=== PATIENT | female | born 1985 | race Two or more races ===

== ENCOUNTER 2017-09-21 10:45 | Emergency (ER) | payer BC ==
[2017-09-21 10:50] VITALS: BMI 23.9
[2017-09-21 11:05] VITALS: RESP 16
--- NOTE | 2017-09-21 11:32 | ED PDOC ---
HPI: Female Pain Time Seen by Provider: 09/21/17 10:58 Chief Complaint (Nursing): Female Genitourinary Chief Complaint (Provider): Vag bleeding History Per: Patient History/Exam Limitations: no limitations Additional Complaint(s): Pt @ 7 weeks presents with vaginal bleeding with clots since last PM, associated with crampy abdominal pain. Denies fever, nausea, vomiting, constipation, diarrhea. PMD: Dr. Scales ([place]) Abnormal Vaginal Bleeding: Yes : 2 Para: 0 Past Medical History Reviewed: Nursing Documentation, Vital Signs Vital Signs: Last Vital Signs Temp 97 F L 09/21/17 10:49 Pulse 75 09/21/17 10:49 Resp 16 09/21/17 10:59 BP 110/73 09/21/17 10:49 Pulse Ox 100 09/21/17 10:49 - Medical History PMH: No Chronic Diseases - Family History Family History: States: Unknown Family Hx - Living Arrangements Living Arrangements: With Family - Social History Current smoker - smoking cessation education provided: No Alcohol: None - Home Medications Home Medications: Ambulatory Orders Medication Instructions Recorded Naproxen [Naprosyn] 500 mg PO BID PRN #15 tablet 09/21/17 - Allergies Allergies/Adverse Reactions: Allergies Allergy/AdvReac Type Severity Reaction Status Date / Time No Known Allergies Allergy Verified 09/21/17 10:57 Review of Systems Constitutional: Negative for: Fever, Chills Cardiovascular: Negative for: Chest Pain, Palpitations Respiratory: Negative for: Cough, Shortness of Breath Gastrointestinal: Positive for: Abdominal Pain. Negative for: Nausea, Vomiting , Diarrhea Genitourinary Female: Positive for: Vaginal Bleeding, Pelvic Pain. Negative for : Dysuria, Hematuria Musculoskeletal: Negative for: Back Pain Skin: Negative for: Rash, Lesions Neurological: Negative for: Headache Physical Exam - Reviewed Nursing Documentation Reviewed: Yes Vital Signs Reviewed: Yes - Physical Exam Appears: Positive for: Well, No Acute Distress Head Exam: Positive for: ATRAUMATIC, NORMAL INSPECTION Skin: Positive for: Normal Color, Warm, Dry Eye Exam: Positive for: Normal appearance, EOMI, PERRL Cardiovascular/Chest: Positive for: Regular Rate, Rhythm Respiratory: Positive for: Normal Breath Sounds. Negative for: Rales, Rhonchi, Wheezing Gastrointestinal/Abdominal: Positive for: Normal Exam, Bowel Sounds, Soft. Negative for: Tenderness Back: Positive for: Normal Inspection Extremity: Positive for: Normal ROM Neurologic/Psych: Positive for: Alert, Oriented - Laboratory Results Result Diagrams: 09/21/17 12:00 09/21/17 12:00 - ECG O2 Sat by Pulse Oximetry: 100 Medical Decision Making Medical Decision Makin yo @ 7 weeks with vaginal bleeding and abdominal pain. - labs - pelvic ultrasound Accession No. : [id number] Patient Name / ID : ALISHA HIRSCH / [id number] Exam Date : 09/21/2017 12:27:29 ( Approved ) Study Comment : Sex / Age : F / 32Y Creator : Marily Miranda MD Dictator : Marily Miranda MD Addiction Specialist : Abattoir Supervisor : Marily Miranda MD Approver2 : Report Date : 09/21/2017 14:10:31 My Comment : This report is currently processing and HAS NOT BEEN OFFICIALLY SIGNED BY THE PHYSICIAN - ESTIMATED TIME OF APPROVAL IS 09/21/2017 14:16. Date of service: 09/21/2017 PROCEDURE: OB Pelvic Ultrasound HISTORY: Vag bleeding COMPARISON: None available. FINDINGS: UTERUS: No evidence of intrauterine gestational sac. The central endometrial echo complex is heterogeneous and measures 10 mm. There is probable fluid/hemorrhage in the superior endometrial cavity. Uterus measures 8.7 x 4.5 x 5.5 cm. No mass CERVIX: Long and closed. No cervical abnormality seen. RIGHT OVARY: Measures 2.8 x 1.2 x 1.9 cm. No mass. Normal flow. LEFT OVARY: Measures 4.5 x 4.8 x 4.7 cm. No mass. Normal flow. There is a 4.2 x 4.1 x 5.4 cm simple cyst. FREE FLUID: None. OTHER FINDINGS: None. IMPRESSION: No evidence of intrauterine gestation. Heterogeneous central endometrial echo complex with presumable fluid/ hemorrhage in the superior endometrial canal. 5.4 cm simple cyst in the left ovary. Follow-up ultrasound in 3-6 month interval is recommended to assess stability/resolution. 14:20 Pt states she had labs performed @ [facility] on 09/08: beta hCG 23,337.8. Case discussed with Dr. Scales, states beta hCG last week 70,000. Advises patient to follow-up next week for [facility] referral. Results discussed with patient, questions answered. Disposition - Clinical Impression Clinical Impression: Complete - Disposition Referrals: Areli Scales [Medical Doctor] - Disposition Time: 14:27 Condition: STABLE Additional Instructions: FOLLOW-UP WITH DR. SCALES NEXT WEEK. Prescriptions: Naproxen [Naprosyn] 500 mg PO BID PRN #15 tablet PRN Reason: Pain, Moderate (4-7) Instructions: Miscarriage, Dealing With Miscarriage Forms: [facility] ([place])
[2017-09-21 12:23] LABS: BASO % 0.5 % (0.0-2.0); EOS # 0.1 K/uL (0.0-0.7); EOS % 2.2 % (0.0-4.0); HEMOGLOBIN 13.4 g/dL (12.0-16.0); LYMPH # 1.1 K/uL (1.0-4.3); LYMPH % 38.9 % (20.0-40.0); MEAN CELL VOLUME 88.5 fl (81.0-99.0); MEAN CORPUSCULAR HEMOGLOBIN 29.2 pg (27.0-31.0); MEAN PLATELET VOLUME 8.5 fl (7.2-11.7); MONO # 0.3 K/uL (0.0-0.8); MONO % 8.9 % (0.0-10.0); NEUT # 1.4 K/uL (1.8-7.0); NEUT % 49.5 % (50.0-75.0); NRBC % 0.2 % (0.0-0.0); PARTIAL THROMBOPLASTIN TIME 32.5 Seconds (25.6-37.1); RBC 4.58 Mil/uL (3.80-5.20); RED CELL DISTRIBUTION WIDTH 14.3 % (11.5-14.5); WHITE BLOOD COUNT 2.9 K/uL (4.8-10.8)
[2017-09-21 12:57] LABS: ALB/GLOB RATIO 1.2 (1.0-2.1); ALBUMIN 4.6 g/dL (3.5-5.0); ALT/SGPT 25 U/L (9-52); AST/SGOT 32 U/L (14-36); BLOOD UREA NITROGEN 11 mg/dl (7-17); CALCIUM 9.4 mg/dL (8.4-10.2); GFR AFRICAN-AMERICAN > 60; GFR NON-AFRICAN AMERICAN > 60
--- NOTE | 2017-09-21 14:12 | US ---
Date of service: 09/21/2017 PROCEDURE: OB Pelvic Ultrasound HISTORY: Vag bleeding COMPARISON: None available. FINDINGS: UTERUS: No evidence of intrauterine gestational sac. The central endometrial echo complex is heterogeneous and measures 10 mm. There is probable fluid/hemorrhage in the superior endometrial cavity. Uterus measures 8.7 x 4.5 x 5.5 cm. No mass CERVIX: Long and closed. No cervical abnormality seen. RIGHT OVARY: Measures 2.8 x 1.2 x 1.9 cm. No mass. Normal flow. LEFT OVARY: Measures 4.5 x 4.8 x 4.7 cm. No mass. Normal flow. There is a 4.2 x 4.1 x 5.4 cm simple cyst. FREE FLUID: None. OTHER FINDINGS: None. IMPRESSION: No evidence of intrauterine gestation. Heterogeneous central endometrial echo complex with presumable fluid/ hemorrhage in the superior endometrial canal. 5.4 cm simple cyst in the left ovary. Follow-up ultrasound in 3-6 month interval is recommended to assess stability/resolution.
[2017-09-21 14:36] VITALS: BP 115/70; PULSE 66; TEMP 97.9; O2SAT 98
== END 2017-09-21 14:36 | disposition home or self-care (01) ==
LOC: H.ER 10:45
DX: O03.9 Complete or unspecified spontaneous abortion without complication (principal)